=== PATIENT | female | born 1975 | race Caucasian/White ===

== ENCOUNTER 2023-12-27 08:21 | Emergency (ER) | payer OTHER, SELFPAY ==
[2023-12-27 08:49] VITALS: BP 171/118
[2023-12-27 09:18] LABS: % Basophils 1.4 % (0-2); % Eosinophils 7.5 % (0-6); % Immature Granulocytes 0.2 % (0-0.5); % Lymphocytes 36.8 % (20.5-51.1); % Monocytes 5.4 % (1.7-9.3); % Neutrophils 48.7 % (42.2-75.2); Absolute Basophils 0.1 10^3/uL (0-0.2); Absolute Eosinophils 0.5 10^3/uL (0-0.7); Absolute Lymphocytes 2.3 10^3/uL (1.2-3.4); Absolute Monocytes 0.3 10^3/uL (0.1-0.6); Absolute Neutrophils 3.1 10^3/uL (1.4-6.5); Hematocrit 41.9 % (37.0-47.0); Hemoglobin 13.6 g/dL (12.0-16.0); Mean Corp Hgb Conc. 32.5 g/dL (33.0-37.0); Mean Corpuscular Hgb 28.9 pg (27.0-31.0); Mean Corpuscular Volume 89.1 fL (81.0-99.0); Mean Platelet Volume 10.2 fL (7.4-10.4); Nucleated Red Blood Cells % 0 %; Platelet Count 253 10^3/uL (130-400); Red Cell Dist. Width 13.5 % (11.5-14.5); White Blood Cell Count 6.3 10^3/uL (4.8-10.8)
[2023-12-27 09:29] LABS: ALT (SGPT) 19 U/L (0-35); AST (SGOT) 23 U/L (14-36); Albumin 4.3 g/dl (3.5-5.0); Alkaline Phosphatase 85 U/L (38-126); Blood Urea Nitrogen 18 mg/dl (7-17); Calcium 9.3 mg/dl (8.4-10.2); Carbon Dioxide 28 mmol/L (22-30); Chloride 106 mmol/L (98-107); Glucose 90 mg/dl (70-99); Potassium 4.2 mmol/L (3.5-5.1); Sodium 139 mmol/L (135-145); Total Bilirubin 0.7 mg/dl (0.2-1.3); Total Protein 7.1 g/dl (6.3-8.2); eGFR > 60.00
[2023-12-27 09:34] LABS: COVID-19 Antigen Negative (Negative)
[2023-12-27 10:16] VITALS: BP 152/92
--- NOTE | 2023-12-27 10:39 | ED.GENMED ---
History of Present Illness
General
Chief Complaint: Cold/Flu/URI Symptoms
Source: patient
Exam Limitations: none
Time Seen by Provider: 12/27/23 10:27
Nursing documentation reviewed up to this point in time: agreed with
Travel History
Have you had any contact with someone who has COVID-19?: No
Do you have any symptoms of coronavirus? Fever > 100 degrees, chills, cough, shortness of breath, sore throat, loss of taste or smell, muscle aches, or headache?: No
History of Present Illness
History of Present Illness:
48-year-old female with history of HTN, anxiety states that she developed nasal congestion 6 days ago, went to [facility], had a negative COVID and flu test, was prescribed Flonase which she states 'that does not do anything.' She is here today
with fatigue, woke up in the middle of the night to go to the bathroom and had an episode of sweating and lightheadedness, she feels hot then cold, she also has a right-sided sore throat.
She denies N/V/D/C. Denies chest pain or trouble breathing. No trouble swallowing or speaking.
Past History
Past History
ED Past Medical History: HTN
ED Past Surgical History: , Gynecological and Other (hernia)
Social History
Tobacco: Non-smoker
Alcohol: Occasional
Drug: None
Personal:
Living: with family
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
Family History
Family History: Other (mother w/ CHF in late 50s); Negative Early CAD or CAD
Review of Systems
Review of Systems
Allergies reviewed?: Yes
All Other Systems: ROS reviewed and negative except as documented in HPI and ROS
Constitutional: Reports fatigue and chills; Denies fever
EENT: Reports sore throat
Respiratory: Denies cough or trouble breathing
Cardiac: Denies chest pain
ABD/GI: Denies abdominal pain, nausea, vomiting, diarrhea or anorexia
: Denies dysuria, frequency, difficulty voiding or urgency
Musculoskeletal: Reports no symptoms
Skin: Reports no symptoms
Neurological: Reports no symptoms
Phy Exam
Physical Exam
Physical Exam:
GENERAL: No acute distress. A&Ox3.
CONSTITUTIONAL: Afebrile.
EYES: Clear, conjunctivae normal
Neck: Supple, mild right anterior cervical lymphadenopathy
ENMT: moist mucus membranes, Pharynx nl
RESPIRATORY: Regular respirations, nonlabored, lungs clear.
CARDIOVASCULAR: Regular rate and rhythm, no murmurs, no rubs.
GI: Soft, nontender, normal BS
MUSCULOSKELETAL: Moves with ease. Well perfused.
SKIN: Warm, dry, pink
PSYCH: Normal mood and affect. Well kept, interactive and appropriate
NEUROLOGIC: Awake, alert and oriented. No focal neurological deficits
Course
Orders/Labs/Results
Orders:
Orders
12/27/23 09:01
CMP [Comprehensive Metabolic Panel] Urgent
COVID-19 Antigen Urgent
Source: Nasal Swab
Complete Blood Count/With Diff Urgent
Monotest Urgent
Comment: ADD ON
INF RAPID [Influenza A+B Rapid Molecular] Urgent
ELIGIO Source: Nasal Swab
Specimen Description:
12/27/23 10:38
Add On- LAB Urgent
Tests Added?: Monotest
12/27/23 10:43
Rapid Strep Group A Urgent
ELIGIO Source: Throat/Pharynx
Specimen Description:
Date Specimen was Collected: 12/27/23
Time Specimen was Collected: 10:42
Throat Culture [Throat Culture, Comprehensive] Urgent
ELIGIO Source: Throat/Pharynx
Specimen Description:
Date Specimen was Collected: 12/27/23
Time Specimen was Collected: 10:42
Abnormal Lab Results
12/27/23
09:01
MCHC 32.5 L g/dL
(33.0-37.0)
Eosinophils % 7.5 H %
(0-6)
BUN 18 H mg/dl
(7-17)
12/27/23 09:01
12/27/23 09:01
Vital Signs
Initial and Last Documented VS:
Initial Vital Signs
Temp Pulse Resp BP Pulse Ox
98.1 F 91 18 171/118 99
12/27/23 08:49 12/27/23 08:49 12/27/23 08:49 12/27/23 08:49 12/27/23 08:49
Last Documented Vital Signs
Temp Pulse Resp BP Pulse Ox
98.1 F 78 16 132/83 97
12/27/23 08:49 12/27/23 12:15 12/27/23 12:15 12/27/23 12:15 12/27/23 12:15
MDM/Problems Addressed
Differential Diagnosis Includes:
Strep throat, viral pharyngitis, mono
MDM/Problems Addressed:
48-year-old female with history of HTN, anxiety states that she developed nasal congestion 6 days ago, went to [facility], had a negative COVID and flu test, was prescribed Flonase which she states 'that does not do anything.' She is here today
with fatigue, woke up in the middle of the night to go to the bathroom and had an episode of sweating and lightheadedness, she feels hot then cold, she also has a right-sided sore throat.
She denies N/V/D/C. Denies chest pain or trouble breathing. No trouble swallowing or speaking.
12/27/2023 1243 PM
CBC normal
CMP normal
Monotest negative
COVID-negative
Rapid strep negative
Flu negative
Most likely viral illness
Stable for discharge
Ambulated out with steady gait
*Critical Care Note
Total Time (30-74mins, 75-104mins- exclusive of procedures): Not Applicable
ED Attending Note
-
Portions of this chart may have been created with voice recognition software.� Occasional wrong word or��sound alike� substitutions may have occurred due to the inherent limitations of voice recognition software.
Discharge Plan
Departure
Patient Disposition: Home (Routine Discharge)
Date of Disposition: 12/27/23
Time of Disposition: 12:44
Patient with high blood pressure during this ER visit?: No
Condition: Good
Covid-19: Negative COVID-19
Discharge Problem:
Viral illness
Instructions: Viral Syndrome (DC)
Prescriptions:
No Action
acetaminophen [Tylenol Extra Strength] 500 MG tablet
500 mg PO PRN PRN (Reason: pain)
losartan-hydrochlorothiazide 1 TAB tablet
1 tab PO DAILY
acetaminophen 325 MG tablet
650 mg PO Q4HPRN PRN (Reason: mild pain) 0RF
naproxen [EC-Naprosyn] 500 MG tablet,delayed release (DR/EC)
500 mg PO BID Qty: 20 0RF
Referrals:
Amenta, Dina [Other] - As needed
Amenta,Dina L., DO [Family Provider] -
Stand Alone Forms: Return to Work
Activity Restrictions/Additional Instructions:
As we discussed, your workup here today is negative for anything worrisome.
Specifically no sign of a bacterial infection needing antibiotics.
Tylenol or ibuprofen as needed, drink plenty of fluids and your symptoms should improve over the next week.
Interventions
Interventions:
*Risk Screen - Suicide Last Done: 12/27/23 08:49
*General Assessment Last Done: 12/27/23 10:09
*Neglect/Abuse Screening Last Done: 12/27/23 08:49
ED- Fall Risk Assessment Last Done: 12/27/23 12:50
*ED COVID-19 Vaccine History Last Done: 12/27/23 08:54
*Nursing Disposition Last Done: 12/27/23 12:50
ED- Pulmonary Assessment Last Done: 12/27/23 10:09
Discharge Date and Time
Discharge Date/Time: 12/27/23 12:51
[2023-12-27 11:49] LABS: Monotest Negative (Negative)
[2023-12-27 12:15] VITALS: BP 132/83
== END 2023-12-27 12:51 | disposition home or self-care (01) ==
LOC: EMR 08:21
PROVIDERS: EMERGENCY PHYSICIAN Emergency Medicine; FAMILY PHYSICIAN Internal Medicine
DX: B34.9 Viral infection, unspecified (principal); I10 Essential (primary) hypertension; Z11.52 Encounter for screening for COVID-19
CPT/HCPCS: 99283; 80053; 85025; 86308; 87070; 87502; 87811; 87880

== ENCOUNTER → 2024-07-26 09:38 | Outpatient (REF) | payer OTHER, SELFPAY | LOC: HWRCS 09:38 | PROVIDERS: ATTENDING PHYSICIAN Internal Medicine Cardiovascular Disease; FAMILY PHYSICIAN Internal Medicine | DX: I10 Essential (primary) hypertension (principal) | CPT/HCPCS: 93306 ==

== ENCOUNTER → 2025-02-09 08:46 | Outpatient (REF) | payer OTHER, SELFPAY | LOC: HWWDC 08:46 | PROVIDERS: ATTENDING PHYSICIAN Internal Medicine | DX: Z12.31 Encounter for screening mammogram for malignant neoplasm of breast (principal) | CPT/HCPCS: 77063; 77067 ==